=== PATIENT | female | born 1990 | race Hispanic/Latino ===

== ENCOUNTER 2017-05-17 10:14 | Day surgery (SDC) | payer BC ==
[~2017-05-17 10:14] MED LIST: ANCEF/STERILE WATER 2 GM/20 ML IV NR
[2017-05-17] MEDS ORDERED: NACL BACTERIOSTATIC INFILTRATI ONE (11:33)
[2017-05-17] MEDS ORDERED: ZOFRAN ONE (13:00)
[2017-05-17] MEDS ORDERED: LACTATED RINGERS 1,000 ML IV SCH ×2 (13:00→14:00)
[2017-05-17] MEDS ORDERED: ZOFRAN IV PRN (13:11)
--- NOTE | 2017-05-17 13:12 | Anesthesia Day of Surgery ---
Anesthesia Day of Surgery - Day of Surgery Patient Examined: Yes Patient H&P Reviewed: Yes Patient is NPO: Yes
--- NOTE | 2017-05-17 13:14 | Anesthesia Consultation ---
Anesthesia Consult and Med Hx Date of service: 05/17/17 - Airway Anesthetic Teeth Evaluation: Good ROM Head & Neck: Adequate Mental/Hyoid Distance: Adequate Mallampati Class: Class I Intubation Access Assessment: Probably Good - Pulmonary Exam CTA: Yes - Cardiac Exam Cardiac Exam: RRR Anesthetic Concerns: PONV - Pre-Operative Health Status ASA Pre-Surgery Classification: ASA2 Proposed Anesthetic Plan: General - Pulmonary Hx Smoking: No Hx Sleep Apnea: Yes (DX SLEEP APNEA , NO CPAP USE) - Cardiovascular System Hx Hypertension: No - Central Nervous System Hx Neuromuscular Disorder: No (Migraines) Hx Psychiatric Problems: Yes (Depression) - Other Systems Hx Cancer: No
[2017-05-17] MEDS ORDERED: SUBLIMAZE ONE (13:52)
[2017-05-17] MEDS ORDERED: XYLOCAINE MPF 2% ONE (13:52)
[2017-05-17] MEDS ORDERED: DIPRIVAN 10 MG/ML IV ONE (13:54)
[2017-05-17] MEDS ORDERED: WATER FOR IRRIG STERILE IR ONE (14:45)
--- NOTE | 2017-05-17 14:57 | Short Stay Summary ---
Short Stay Documentation Date of service: 05/17/17 - History H&P: obtained from office - Allergies and Medications Current Medications: Allergies No Known Allergies Allergy (Verified 05/16/17 14:40) Home Medications Medication Instructions Recorded Confirmed Last Taken Type Mononessa 1 tab PO DAILY 05/16/17 05/17/17 05/17/17 09:00 History Brexpiprazole [Rexulti] 0.25 mg PO DAILY 05/16/17 05/17/17 05/17/17 09:00 History Bupropion HCl [Wellbutrin XL] 300 mg PO QHS 05/16/17 05/17/17 05/16/17 23:00 History Topiramate [Topamax] 200 mg PO BID 05/16/17 05/17/17 05/17/17 09:00 History Active Medications Cefazolin Sodium (Ancef/Sterile Water 2 Gm/20 Ml) 2 gm IV PREOP NR Stop: 05/17/17 23:00 Hydromorphone HCl (Dilaudid) 0.5 mg IV Q10MIN PRN PRN Reason: Pain , Severe (7-10) Stop: 05/17/17 23:59 Lactated Ringer's (Lactated Ringers) 1,000 mls @ 100 mls/hr IV DIRECT PAUL Last Admin: 05/17/17 13:17 Dose: 100 mls/hr Lactated Ringer's (Lactated Ringers) 1,000 mls @ 100 mls/hr IV DIRECT PAUL - Brief post op/procedure progress note Date of procedure: 05/17/17 Pre-op diagnosis: rt ureteral stone Post-op diagnosis: same Procedure: cysto, rpg, rt uretersocpy stent with external string Anesthesia: DANIELA Surgeon: CARLOS AYERS - Hospital course Hospital course: pt has cipro & norco post op info on chart ok to remove stent tomorrow - Disposition Condition at discharge: Stable Disposition: DC-01 TO HOME OR SELFCARE Short Stay Discharge Plan Follow up with: PRIMARY CARE, [Primary Care Provider] - 7 Days
[2017-05-17] MEDS: DILAUDID IV PRN ×2 (15:10→15:20)
[2017-05-17 17:20] VITALS: BP 137/66
--- NOTE | 2017-05-18 01:02 | Operative Report ---
PREOPERATIVE DIAGNOSIS: Right distal ureteral stone, 5 mm. POSTOPERATIVE DIAGNOSIS: Right distal ureteral stone, 5 mm. PROCEDURE: Cystoscopy, bilateral retrograde pyelogram, right rigid ureteroscopy, double-J stent with an external string (6 Mexican 24 cm with an external string). SURGEON: Ten Norris MD ANESTHESIA: General. ESTIMATED BLOOD LOSS: Minimal. FLUIDS: Crystalloid. COMPLICATIONS: No complications. INDICATIONS: This patient is a 26-year-old female presented to the Emergency Room ____ with right flank pain. CT of abdomen and pelvis revealed a distal stone. She presents now for surgical intervention. Risks, benefits, and complications were explained. The patient agreed to proceed with surgical intervention. She did not want observation due to her travels. DESCRIPTION OF PROCEDURE: The patient was taken to the operative suite, placed in a supine position. After adequate general anesthesia, placed in a dorsal lithotomy position, prepped and draped in a sterile fashion. Pancystourethroscopy was performed with 22 [place] Storz cystoscope. No bladder pathology. Bilateral retrograde pyelograms were obtained with an 8 [place] catheter and 8 mL of contrast. No filling defects or obstruction on the left. Right side had some mild narrowing of the distal ureter. Two 0.035 Glidewires were placed, rigid ureteroscopy up to the renal pelvis. No stone could be appreciated. There was some edema and erythema of the distal ureter suggesting a passed stone. A 6 Mexican 24 cm double-J stent with an external string was left indwelling. She was extubated and taken to recovery room in stable condition. She has Cipro and [place]. She will be able to remove her stent tomorrow. JOB# [id number] [facility]
--- NOTE | 2017-05-19 10:23 | Fluoroscopy Report ---
Fluoroscopy retrograde uropathy History: Right ureteral stone. Findings: Fluoroscopy was provided by radiology during retrograde urography by urology. 9 fluoroscopic images were captured. The images demonstrate placement of a right ureteral stent which is in good position on the final image and adequately drains the right renal collecting system. The left pyelogram is normal. Please correlate with the procedural report by Dr. Norris. Impression: Right ureteral stent placement.
== END 2017-05-17 16:15 | disposition home or self-care (01) ==
LOC: OR 10:14
PROVIDERS: ATTEND Urology
DX: N20.1 Calculus of ureter (principal); N13.5 Crossing vessel and stricture of ureter without hydronephrosis; F32.9 Major depressive disorder, single episode, unspecified; G47.33 Obstructive sleep apnea (adult) (pediatric); Z87.440 Personal history of urinary (tract) infections; G43.909 Migraine, unspecified, not intractable, without status migrainosus; Z90.49 Acquired absence of other specified parts of digestive tract; Z79.899 Other long term (current) drug therapy
CPT/HCPCS: 52332; 74420; 81025; A4217; C1758; C1769; C2617; J0690; J1170; J2405; J2704; J3010; J7120; Q9967